=== PATIENT | female | born 1970 | race Caucasian/White ===

== ENCOUNTER 2018-03-12 22:35 | Emergency (ER) | payer OTHER ==
[~2018-03-12] VITALS: Ht 167.6 cm; Wt 105.7 kg
[2018-03-12 22:41] VITALS: Ht 167.6 cm; Wt 105.7 kg
[2018-03-12 23:37] VITALS: BP 162/100
== END 2018-03-12 23:37 | disposition home or self-care (01) ==
LOC: ED 22:35
DX: J06.9 Acute upper respiratory infection, unspecified (principal); Z90.49 Acquired absence of other specified parts of digestive tract

== ENCOUNTER 2018-04-11 16:20 | Emergency (ER) | payer OTHER ==
[~2018-04-11] VITALS: Ht 157.5 cm; Wt 104.8 kg
[2018-04-11 19:39] VITALS: BP 133/90
== END 2018-04-11 19:40 | disposition home or self-care (01) ==
LOC: ED 16:20
DX: R51 Headache (principal); N39.0 Urinary tract infection, site not specified; R11.10 Vomiting, unspecified
CPT/HCPCS: J1200; J1885; J2765

== ENCOUNTER 2018-04-13 11:25 | Emergency (ER) | payer OTHER ==
[~2018-04-13] VITALS: Ht 167.6 cm; Wt 104.3 kg
[2018-04-13 11:41] VITALS: Ht 167.6 cm; Wt 104.3 kg
[2018-04-13 12:16] LABS: BASOPHIL % 0.2 % (0-2); PLATELET COUNT 258 x10^3mcL (130-400); RED CELL DISTRIBUTION WIDTH 13.7 % (11.5-14.5)
[2018-04-13 12:29] LABS: ALKALINE PHOSPHATASE 150 U/L (46-116); ALT/SGPT 119 U/L (14-59); AST/SGOT 134 U/L (15-37); CALCIUM 8.5 mg/dL (8.5-10.1); CARBON DIOXIDE 25.1 mmol/L (21-32); CHLORIDE SERUM 102 mmol/L (98-107); GFR1 > 60 mL/min; GLUCOSE SERUM 115 mg/dL (74-106); LIPASE 342 IU/L (73-393); SODIUM SERUM 137 mmol/L (136-145); TOTAL PROTEIN, SERUM 7.5 g/dL (6.4-8.2)
[2018-04-13 12:32] LABS: ALBUMIN 2.5 g/dL (3.4-5.0); POTASSIUM SERUM 2.9 mmol/L (3.5-5.1)
[2018-04-13 15:11] VITALS: BP 139/82
== END 2018-04-13 15:09 | disposition home or self-care (01) ==
LOC: ED 11:25
PROVIDERS: Emergency Medicine
DX: N39.0 Urinary tract infection, site not specified (principal); E87.6 Hypokalemia; G43.909 Migraine, unspecified, not intractable, without status migrainosus
CPT/HCPCS: J1885; J7030; Q0092